=== PATIENT | female | born 1995 | race Caucasian/White ===

== ENCOUNTER 2016-06-20 11:27 | Emergency (ER) | payer OTHER ==
[~2016-06-20] VITALS: Ht 149.9 cm; Wt 67.4 kg
[~2016-06-20 11:27] MED LIST: ALBU1AER9 INH; OXYC-57 PO; QUET1TAB34 PO
[2016-06-20 11:31] VITALS: TEMP 36.8; Ht 149.9 cm; Wt 67.4 kg
[2016-06-20 11:32] VITALS: O2SAT 97
[2016-06-20] MEDS ORDERED: BUPR100T13 PO (12:48)
[2016-06-20] MEDS ORDERED: SODIUM CHLORIDE 0.9% 1000ML 1,000 ML IV STA (13:43)
[2016-06-20 13:59] LABS: HEMATOCRIT 40.3 % (37-47); MEAN CORPUSCULAR HEMOGLOBIN 30.4 pg (25-34); MEAN CORPUSCULAR HGB CONC 35.7 g/dl (32-36); PLATELET COUNT 337 K/uL (130-400); RED BLOOD COUNT 4.74 M/uL (4.2-5.4); WHITE BLOOD COUNT 8.36 K/uL (4.8-10.8)
[2016-06-20 14:07] LABS: BUN/CREATININE RATIO 12.9 (10-20); CALCIUM 8.8 mg/dl (8.5-10.1); CREATININE 0.65 mg/dl (0.60-1.20); POTASSIUM 3.9 mmol/L (3.5-5.1)
[2016-06-20 14:10] LABS: ALB/GLOB RATIO 1.4 (0.9-2)
[2016-06-20 14:15] LABS: PREG INTERNAL NEGATIVE QC NEG CLEAR BACKGROUND; PREG INTERNAL POSITIVE QC POS CONTROL LINE
[2016-06-20 14:57] VITALS: BP 98/59; PULSE 84; O2SAT 98
--- NOTE | 2016-06-20 15:32 | EMERGENCY ROOM VISIT NOTE ---
History Report prepared by Ewa: Fish Poon Under the Supervision of: Dr. Alberto Lemons M.D. First contact with patient: 13:32 Chief Complaint: HEADACHE Stated Complaint: SEIZURE History of Present Illness The patient is a 21 year old female who presents to the Emergency Room via EMS with complaints of resolved seizure-like activity occurring a few minutes prior to arrival. The patient started having her symptoms while she was having an MRI at [facility]. She was having the MRI for worsened migraine headache severity, increased headache frequency, and issues with memory. After she received the MRI contrast injection, she had chest pain, felt her jaw become locked, and lost consciousness. The next thing she remembered was being in the ambulance. The patient denies tongue bite, vomiting, and urinary incontinence. She had a slight headache this morning but was otherwise at baseline. She currently complains of a headache which is similar to her normal migraine headache. She rates the pain intensity at 5/10. She denies any recent fevers, chills, urinary symptoms, or any other complaints. She had a renal profile on June 06 which was normal. She has received an MRI in the past without any issues. She has a history of a seizure occurring after overdosing on medication. The patient's sister has a history of epilepsy secondary to a car accident. The patient has been on Wellbutrin since February 2016. Source of History: patient Onset: a few minutes prior to arrival Position: other (global) Quality: other (seizure-like activity) Timing: resolved Associated Symptoms: + LOC, + chest pain, + headache, No chills, No fevers, No urinary symptoms Review of Systems See HPI for pertinent positives & negatives. A total of 10 systems reviewed and were otherwise negative. Past Medical & Surgical Medical Problems: (1) Active labor (2) Bipolar II disorder (3) Borderline personality disorder (4) cluster B personality disorder (5) Conversion disorder (6) Depression (7) Flank pain (8) Flank pain (9) Flank pain (10) Generalized weakness (11) Migraine (12) (13) (14) contractions (15) PTSD (post-traumatic stress disorder) (16) Stuttering (17) Stuttering (18) Third trimester (19) Urinary tract infection Family History FH: epilepsy Social History Smoking Status: Current Every Day Smoker Alcohol Use: occasionally Drug Use: none Marital Status: single Housing Status: lives with family Occupation Status: unemployed Current/Historical Medications Scheduled Levonorgestrel (Iud) (Mirena), 20 MCG INT UTER UD Quetiapine Fumarate (Seroquel), 100 MG PO HS Scheduled PRN Albuterol Sulfate (Proair Hfa), 2 PUFFS INH Q4H PRN for Asthma Symptoms Epinephrine (Epipen), 0.3 MG IM UD PRN for ALLERGIC REACTION Miscellaneous Medications Bupropion Hcl (Wellbutrin), 100 MG PO Allergies Coded Allergies: BEE STING (Unverified Allergy, Severe, ANAPHYLAXIS, 06/20/16) Sulfamethoxazole w/Trimethoprim (Verified Allergy, Severe, ANAPHYLAXIS, ) Nickel (Verified Allergy, Mild, RASH, 06/20/16) Physical Exam Vital Signs Date Time Temp Pulse Resp B/P Pulse Ox O2 Delivery O2 Flow Rate FiO2 06/20/16 14:57 84 22 98/59 98 06/20/16 14:05 79 16 126/70 97 Room Air 06/20/16 12:14 79 06/20/16 11:32 97 Room Air 06/20/16 11:31 36.8 79 18 113/85 97 Room Air Physical Exam GENERAL: Patient is in no acute distress. HEENT: No acute trauma, normocephalic atraumatic, mucous membranes moist, no nasal congestion, no scleral icterus. NECK: No stridor, no adenopathy, no meningismus, trachea is midline. LUNGS: Clear to auscultation bilaterally, no wheeze, no rhonchi, breath sounds equal. HEART: Without murmurs gallops or rubs, regular rate and rhythm. ABDOMEN: Soft, nontender, bowel sounds positive, no hernias, no peritonitis. EXTREMITIES: No cyanosis or edema, full range of motion of all the joints without pain or difficulty, no signs for acute trauma. NEUROLOGIC: Oriented x 3, no acute motor or sensory deficits, no focal weakness. SKIN: No rash, no jaundice, no diaphoresis. Medical Decision & Procedures Laboratory Results 06/20/16 10:55 06/20/16 10:55 Test 06/20/16 10:55 Red Blood Count 4.74 M/uL (4.2-5.4) Mean Corpuscular Volume 85.0 fL (80-100) Mean Corpuscular Hemoglobin 30.4 pg (25-34) Mean Corpuscular Hemoglobin Concent 35.7 g/dl (32-36) RDW Standard Deviation 40.9 fL (36.4-46.3) RDW Coefficient of Variation 13.1 % (11.5-14.5) Mean Platelet Volume 10.0 fL (7.4-10.4) Anion Gap 10.0 mmol/L (3-11) Est Creatinine Clear Calc Drug Dose 112.4 ml/min Estimated GFR () 145.0 Estimated GFR (Non- 125.1 BUN/Creatinine Ratio 12.9 (10-20) Calcium Level 8.8 mg/dl (8.5-10.1) Total Bilirubin 0.5 mg/dl (0.2-1) Aspartate Amino Transf (AST/SGOT) 13 U/L (15-37) Alanine Aminotransferase (ALT/SGPT) 21 U/L (12-78) Alkaline Phosphatase 132 U/L (45-117) Total Protein 7.0 gm/dl (6.4-8.2) Albumin 4.1 gm/dl (3.4-5.0) Globulin 2.9 gm/dl (2.5-4.0) Albumin/Globulin Ratio 1.4 (0.9-2) Human Chorionic Gonadotropin, Qual NEG (NEG) Laboratory results reviewed by me. Medications Administered Medications (Trade) Dose Ordered Sig/Jose Antonio Route Start Time Stop Time Status Last Admin Dose Admin Sodium Chloride (Nss 1000ml) 1,000 ml @ 999 mls/hr Q1H1M STAT IV 06/20/16 13:43 06/20/16 14:43 DC 06/20/16 13:43 999 MLS/HR ECG Indication: other (seizure-like activity) Rate (beats per minute): 70 Rhythm: normal sinus Findings: other (nonspecific T wave abnormality in anterior lead; no dysrhythmia) Comparison ECG Date: May 25, 2013 Change: Nonspecific T wave abnormalities are similar when compared to May 25, 2013. ED Course 1332: The patient was evaluated in room B09. A complete history and physical exam was performed. 1343: Sodium Chloride 1000 ml @ 999 mls/hr IV 1357: I discussed the patient's case with Dr. Bui, neurologist with [facility]. If the patient's labs are negative, then she recommended discharging the patient and having her follow up. She also recommended stopping the Wellbutrin. 1423: Reevaluated the patient. Discussed results and discharge instructions: She verbalized understanding and agreement. The patient is ready for discharge. Medical Decision Differential diagnosis includes but is not limited to seizure, medication reaction, anxiety/panic, dehydration, electrolyte imbalance, dysrhythmia. There is no leukocytosis or concerning anemia. No significant electrolyte abnormality or kidney failure. There is no hepatitis. testing is negative. On exam, there are no focal neurologic deficits. The patient is not toxic or febrile. EKG shows a sinus rhythm, no dysrhythmia or ischemia. The patient had an event today that may have been a seizure or may have just been a syncopal episode with seizure-like activity. The patient did not have any prolonged postictal phase. She did not bite her tongue or lose urinary continence. I discussed the case with Dr. Dhillon of neurology. The patient will be discharged with outpatient treatment. 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 She was told to stop her Wellbutrin as this may have lowered her seizure threshold. She was encouraged to sleep at least 8 hours per night and to stay well hydrated. The patient was encouraged to return here for worsening symptoms. The patient may have had a reaction to the dye given with the MRI, she may have had a syncopal event, she may have had a seizure. Further workup as an outpatient was recommended. She is stable for discharge. Consults Time Called: 1347 Consulting Physician: Dr. Bui, neurologist with [facility] Returned Call: [phone] I discussed the patient's case with Dr. Bui, neurologist with [facility]. If the patient's labs are negative, then she recommended discharging the patient and having her follow up. She also recommended stopping the Wellbutrin. Impression Primary Impression: Seizure-like activity Scribe Attestation The scribe's documentation has been prepared under my direction and personally reviewed by me in its entirety. I confirm that the note above accurately reflects all work, treatment, procedures, and medical decision making performed by me. Departure Information Dispostion Home / Self-Care Referrals mEili Hernandez M.D. (PCP) Forms HOME CARE DOCUMENTATION FORM, IMPORTANT VISIT INFORMATION Patient Instructions My [facility] Additional Instructions stop the Wellbutrin rest proper sleep--8 hours per night you cannot drive until given clearance by Dr. Cash call neurology for an appt---call tomorrow or today return if worsening lab testing today was all ok
[2016-11-12] MEDS ORDERED: ALBU18002 INH (13:41)
[2016-11-12] MEDS ORDERED: GABA-113 PO (13:42)
== END 2016-06-20 15:00 | disposition home or self-care (01) ==
LOC: EDBD 11:27 → C.EDB 11:28
DX: R56.9 Unspecified convulsions (principal); F31.81 Bipolar II disorder; F32.9 Major depressive disorder, single episode, unspecified; F17.200 Nicotine dependence, unspecified, uncomplicated; Z87.440 Personal history of urinary (tract) infections; Z79.899 Other long term (current) drug therapy; Z88.2 Allergy status to sulfonamides; Z91.030 Bee allergy status; Z91.09 Other allergy status, other than to drugs and biological substances; Z82.0 Family history of epilepsy and other diseases of the nervous system

== ENCOUNTER 2016-09-13 11:28 | Emergency (ER) | payer OTHER ==
[~2016-09-13] VITALS: Ht 160 cm; Wt 67.4 kg
[~2016-09-13 11:28] MED LIST changes: +BUPR100T13 PO; -OXYC-57 PO
[2016-09-13 11:35] VITALS: TEMP 36.8; O2SAT 98; Ht 160 cm; Wt 67.4 kg
[2016-09-13] MEDS ORDERED: SODIUM CHLORIDE 0.9% 1000ML 1,000 ML IV STA (12:13)
[2016-09-13 12:28] LABS: BASO % 0.1 %; BASO ABS # 0.01 K/uL (0-0.2); COMPLETE YES; EOS % 4.6 %; HEMATOCRIT 41.6 % (37-47); IG% 0.2 %; LYMPH % 22.7 %; LYMPH ABS # 1.94 K/uL (1.2-3.4); MEAN CELL VOLUME 85.4 fL (80-100); MEAN CORPUSCULAR HGB CONC 35.1 g/dl (32-36); MEAN PLATELET VOLUME 9.6 fL (7.4-10.4); MONO % 7.3 %; NEUT % 65.1 %; PLATELET COUNT 293 K/uL (130-400); RED BLOOD COUNT 4.87 M/uL (4.2-5.4); WHITE BLOOD COUNT 8.55 K/uL (4.8-10.8)
[2016-09-13 12:45] LABS: POINT OF CARE TROPONIN I < 0.030 ng/ml (0-0.045)
[2016-09-13 12:47] LABS: BUN/CREATININE RATIO 16.1 (10-20); CALCIUM 8.5 mg/dl (8.5-10.1); CREATININE 0.63 mg/dl (0.60-1.20); POTASSIUM 3.1 mmol/L (3.5-5.1)
[2016-09-13 12:55] LABS: URINE APPEARANCE CLEAR (CLEAR); URINE BILIRUBIN NEG (NEG); URINE COLOR YELLOW; URINE EPITHELIAL CELL AUTO >30 /lpf (0-5); URINE NITRITE NEG (NEG); URINE SPECIFIC GRAVITY 1.011 (1.000-1.030); UROBILINOGEN NEG (NEG)
[2016-09-13 12:55] LABS: PREG INTERNAL NEGATIVE QC NEG CLEAR BACKGROUND; PREG INTERNAL POSITIVE QC POS CONTROL LINE; THYROID STIMULATING HORMONE 1.71 uIu/ml (0.300-4.500)
--- NOTE | 2016-09-13 13:02 | DIAGNOSTIC IMAGING REPORT ---
CHEST ONE VIEW PORTABLE CLINICAL HISTORY: CHEST PAIN COMPARISON STUDY: Radiograph and chest CT January 23, 2016. FINDINGS: Lung volumes are normal. There is no pneumothorax or pleural effusion. Cardiac size is normal. Mediastinal contours are normal. There is no evidence of pulmonary edema. IMPRESSION: No acute cardiopulmonary findings. Electronically signed by: Maurilio Borges M.D. 09/13/2016 1:00 PM Dictated Date/Time: 09/13/2016 12:57 PM
[2016-09-13 13:11] LABS: MANUAL MICROSCOPIC REQUIRED? NO; REVIEW REQ? NO
[2016-09-13 16:52] VITALS: BP 107/70; PULSE 82; O2SAT 98
--- NOTE | 2016-09-13 20:33 | EMERGENCY ROOM VISIT NOTE ---
History Report prepared by Ewa: Fish Poon Under the Supervision of: Dr. Lee Bowman M.D. First contact with patient: 12:13 Chief Complaint: CHEST PAIN Stated Complaint: CHEST PAIN Nursing Triage Summary: Pt arrives to ER via ALS with reports of chest pain and chest heaviness that began when patient woke up this AM rated 10/10. Medic started IV and pt reported pain went from 10/10 to 4/10 following a saline flush. EMS also reports pt had "seizure like" activity with tremors/ tense muscles, and head "falling back" right before arrival to hospital. Symptoms stopped upon entering ER. Pt awake but not answering nursing staff upon arrival to room. Sternal rub by Lora RN and patient woke up and spoke with staff. Pt received 324 mg aspirin [employer]. History of Present Illness The patient is a 21 year old female who presents to the Emergency Room via ALS with complaints of persistent chest pain starting about 8 hours ago. The patient woke from sleep with the chest pain. She describes it as a chest tightness and heaviness. She also reports her heart to be racing. She also reports some nausea but denies vomiting. She ate some food this morning without relief. She received 4 baby aspirin by EMS. The patient had been having increased tiredness over the past few days but had been otherwise at baseline. She denies any recent illnesses. As per EMS, the patient had some seizure-like activity occurring with shakiness and her head "fell back". The patient reports she was unable to talk during the episode. The seizure-like activity resolved upon arrival to the Emergency Room. The patient currently feels at baseline and denies any difficulty with speech. She denies any history of similar symptoms. She does not have a history of heart disease. Pt denies LOC, headache, fevers, chills, diaphoresis, visual changes, neck pain , tearing pain radiating to the back, breathing difficulties, leg swelling, coagulation abnormalities, prolonged travel, recent surgery or immobilization, abdominal pain, melena, hematochezia, urinary symptoms, numbness, weakness, lymphadenopathy, rash, or other complaints. Source of History: patient, EMS Onset: about 8 hours ago Position: chest Quality: other (tightness and heaviness) Timing: other (persistent) Modifying Factors (Relieving): eating (without relief) Associated Symptoms: + nausea Review of Systems See HPI for pertinent positives and negatives. A total of ten systems were reviewed and were otherwise negative. Past Medical & Surgical Medical Problems: (1) Active labor (2) Asthma (3) Bipolar II disorder (4) Borderline personality disorder (5) cluster B personality disorder (6) Conversion disorder (7) Depression (8) Flank pain (9) Flank pain (10) Flank pain (11) Generalized weakness (12) H/O endoscopy (13) Migraine (14) (15) (16) contractions (17) PTSD (post-traumatic stress disorder) (18) Stuttering (19) Stuttering (20) Third trimester (21) Urinary tract infection Surgical Problems: (1) S/P cholecystectomy Family History FH: epilepsy Social History Smoking Status: Current Some Day Smoker Alcohol Use: occasionally Drug Use: none Marital Status: single Housing Status: lives with family Occupation Status: unemployed Current/Historical Medications Scheduled Gabapentin (Neurontin), 300 MG PO BID Levonorgestrel (Iud) (Mirena), 20 MCG INT UTER UD Scheduled PRN Albuterol Sulfate (Proair Respiclick), 2 PUFFS INH Q4 PRN for ASTHMA SYMPTOMS Epinephrine (Epipen), 0.3 MG IM UD PRN for ALLERGIC REACTION Allergies Coded Allergies: BEE STING (Unverified Allergy, Severe, ANAPHYLAXIS, 06/20/16) Sulfamethoxazole w/Trimethoprim (Verified Allergy, Severe, ANAPHYLAXIS, ) Nickel (Verified Allergy, Mild, RASH, 06/20/16) Physical Exam Vital Signs Date Time Temp Pulse Resp B/P (MAP) Pulse Ox O2 Delivery O2 Flow Rate FiO2 09/13/16 16:52 82 16 107/70 98 09/13/16 15:00 55 20 192/87 95 Room Air 09/13/16 14:00 78 20 118/66 98 Room Air 09/13/16 13:30 84 20 115/67 99 09/13/16 13:00 72 20 110/63 99 09/13/16 12:45 74 20 103/45 98 09/13/16 12:36 88 20 114/75 99 Room Air 09/13/16 12:07 99 09/13/16 11:35 98 Room Air 09/13/16 11:35 36.8 93 18 134/62 98 Room Air 09/13/16 11:35 98 Room Air Physical Exam GENERAL: Awake, alert, well-appearing, in no distress HENT: Normocephalic, atraumatic. Oropharynx unremarkable. EYES: Normal conjunctiva. Sclera non-icteric. The patient has slight asymmetry of her pupils with the left being 1 mm larger than the right but the patient states is chronic. Pupils are round and reactive. EOMI. NECK: Supple. No nuchal rigidity. FROM. No JVD. RESPIRATORY: Clear to auscultation. CARDIAC: Regular rate, normal rhythm. Extremities warm and well perfused. Pulses equal. ABDOMEN: Soft, non-distended. No tenderness to palpation. No rebound or guarding. No masses. RECTAL: Deferred. MUSCULOSKELETAL: Chest examination reveals no tenderness. The back is symmetrical on inspection without obvious abnormality. No joint edema. LOWER EXTREMITIES: Calves are equal size bilaterally and non-tender. No edema. No discoloration. NEURO: Normal sensorium. No sensory or motor deficits noted. Cranial nerves intact. SKIN: No rash or jaundice noted. Medical Decision & Procedures ER Provider Diagnostic Interpretation: X-ray: Per my interpretation, radiologist review. CHEST ONE VIEW PORTABLE CLINICAL HISTORY: CHEST PAIN COMPARISON STUDY: Radiograph and chest CT January 23, 2016. FINDINGS: Lung volumes are normal. There is no pneumothorax or pleural effusion. Cardiac size is normal. Mediastinal contours are normal. There is no evidence of pulmonary edema. IMPRESSION: No acute cardiopulmonary findings. Electronically signed by: Maurilio Borges M.D. 09/13/2016 1:00 PM Dictated Date/Time: 09/13/2016 12:57 PM Laboratory Results 09/13/16 11:47 Red Blood Count 4.87, Mean Corpuscular Volume 85.4, Mean Corpuscular Hemoglobin 30.0, Mean Corpuscular Hemoglobin Concent 35.1, Mean Platelet Volume 9.6, Neutrophils (%) (Auto) 65.1, Lymphocytes (%) (Auto) 22.7, Monocytes (%) (Auto) 7.3, Eosinophils (%) (Auto) 4.6, Basophils (%) (Auto) 0.1, Neutrophils # (Auto) 5.57, Lymphocytes # (Auto) 1.94, Monocytes # (Auto) 0.62, Eosinophils # (Auto) 0.39, Basophils # (Auto) 0.01 09/13/16 11:47 Test 09/13/16 11:47 09/13/16 12:27 09/13/16 15:09 White Blood Count 8.55 K/uL (4.8-10.8) Red Blood Count 4.87 M/uL (4.2-5.4) Hemoglobin 14.6 g/dL (12.0-16.0) Hematocrit 41.6 % (37-47) Mean Corpuscular Volume 85.4 fL (80-100) Mean Corpuscular Hemoglobin 30.0 pg (25-34) Mean Corpuscular Hemoglobin Concent 35.1 g/dl (32-36) Platelet Count 293 K/uL (130-400) Mean Platelet Volume 9.6 fL (7.4-10.4) Neutrophils (%) (Auto) 65.1 % Lymphocytes (%) (Auto) 22.7 % Monocytes (%) (Auto) 7.3 % Eosinophils (%) (Auto) 4.6 % Basophils (%) (Auto) 0.1 % Neutrophils # (Auto) 5.57 K/uL (1.4-6.5) Lymphocytes # (Auto) 1.94 K/uL (1.2-3.4) Monocytes # (Auto) 0.62 K/uL (0.11-0.59) Eosinophils # (Auto) 0.39 K/uL (0-0.5) Basophils # (Auto) 0.01 K/uL (0-0.2) RDW Standard Deviation 37.9 fL (36.4-46.3) RDW Coefficient of Variation 12.1 % (11.5-14.5) Immature Granulocyte % (Auto) 0.2 % Immature Granulocyte # (Auto) 0.02 K/uL (0.00-0.02) Anion Gap 10.0 mmol/L (3-11) Est Creatinine Clear Calc Drug Dose 128.0 ml/min Estimated GFR () 146.5 Estimated GFR (Non- 126.4 BUN/Creatinine Ratio 16.1 (10-20) Calcium Level 8.5 mg/dl (8.5-10.1) Magnesium Level 2.0 mg/dl (1.8-2.4) Total Bilirubin 0.7 mg/dl (0.2-1) Direct Bilirubin 0.1 mg/dl (0-0.2) Aspartate Amino Transf (AST/SGOT) 17 U/L (15-37) Alanine Aminotransferase (ALT/SGPT) 22 U/L (12-78) Alkaline Phosphatase 103 U/L (45-117) Total Creatine Kinase 67 U/L (26-192) Creatine Kinase MB 0.7 ng/ml (0.5-3.6) Creatine Kinase MB Ratio 1.0 (0-3.0) Total Protein 7.2 gm/dl (6.4-8.2) Albumin 4.2 gm/dl (3.4-5.0) Lipase 151 U/L (73-393) Thyroid Stimulating Hormone (TSH) 1.710 uIu/ml (0.300-4.500) Human Chorionic Gonadotropin, Qual NEG (NEG) Bedside D-Dimer 132 ng/mlFEU (0-450) Urine Color YELLOW Urine Appearance CLEAR (CLEAR) Urine pH 7.0 (4.5-7.5) Urine Specific [place] 1.011 (1.000-1.030) Urine Protein NEG (NEG) Urine Glucose (UA) NEG (NEG) Urine Ketones NEG (NEG) Urine Occult Blood NEG (NEG) Urine Nitrite NEG (NEG) Urine Bilirubin NEG (NEG) Urine Urobilinogen NEG (NEG) Urine Leukocyte Esterase TRACE (NEG) Urine WBC (Auto) 1-5 /hpf (0-5) Urine RBC (Auto) 0-4 /hpf (0-4) Urine Hyaline Casts (Auto) 0 /lpf (0-5) Urine Epithelial Cells (Auto) >30 /lpf (0-5) Urine Bacteria (Auto) NEG (NEG) Bedside Troponin I < 0.030 ng/ml (0-0.045) Laboratory results reviewed by me Medications Administered Medications (Trade) Dose Ordered Sig/Jose Antonio Route Start Time Stop Time Status Last Admin Dose Admin Sodium Chloride 1,000 ml @ 999 mls/hr Q1H1M STAT IV 09/13/16 12:13 09/13/16 13:13 DC 09/13/16 12:13 999 MLS/HR ECG Indication: chest pain Rate (beats per minute): 93 Rhythm: normal sinus Findings: nonspecific-ST abn, no acute ischemic change, no ectopy Comparison ECG Date: June 20, 2016 Change: no significant change ED Course 1213: The patient was evaluated in room C05. A complete history and physical exam was performed. Blood pressure screening: Patient was found to have an elevated blood pressure and was referred to their primary doctor for recheck and further treatment. Medication Reconciliation: I attest that I have personally reviewed the patient' s current medication list Sodium Chloride 1000 ml @ 999 mls/hr IV 1457: I updated the patient. 1635: I reevaluated the patient. Discussed results and discharge instructions: She verbalized understanding and agreement. The patient is ready for discharge. Medical Decision Triage Nursing notes reviewed. The patient's presentation and history were concerning for chest pain and a syncopal/seizure like episode. Etiologies such as cardiac ischemia, aortic dissection, pulmonary embolism, pneumonia, pneumothorax, musculoskeletal, infections, gastrointestinal, syncope , seizure, neurologic, as well as others were entertained. The patient was evaluated. Clinically she was doing well. Her ECG was unremarkable. Chest x-ray was unremarkable. Her CBC and urinalysis and chemistry panel unremarkable except for a slightly decreased potassium. LFTs and lipase negative. Cardiac markers were done and were negative. Repeat troponin was negative as well. is negative. D-dimer is negative. The patient was observed in the emergency department. She had no events on monitor. There is not a clear seizure like activity with a post ictal period described. The patient woke up and was conversing with nursing after a sternal rub. It sounds like she may have had more of a vasovagal-like reaction. There is no evidence of significant dysrhythmia or hypotension. The patient states that she has had similar episodes in the past. She does have a neurologist. She has no focal neurologic findings, headache, or neurologic issues at this time CT imaging of the head or further seizure workup was felt to be inappropriate. I discussed conservative management with the patient. She was in agreement. She will follow back up with her primary physician and neurologist. The patient had chest discomfort for the entire day and her ECG, cardiac markers, and d-dimer were unremarkable. I do not suspect an emergent cardiopulmonary source for her symptoms. May be musculoskeletal or GI related. She has a benign abdominal examination and normal LFTs and chemistries. Return instructions were outlined and the patient was discharged in stable condition. Impression Primary Impression: Substernal chest pain Additional Impression: Palpitations Scribe Attestation The scribe's documentation has been prepared under my direction and personally reviewed by me in its entirety. I confirm that the note above accurately reflects all work, treatment, procedures, and medical decision making performed by me. Departure Information Dispostion Home / Self-Care Referrals Emili Hernandez M.D. (PCP) Forms HOME CARE DOCUMENTATION FORM, IMPORTANT VISIT INFORMATION Patient Instructions My [facility] Additional Instructions CHEST PAIN INSTRUCTIONS: Ibuprofen(Motrin, Advil) may be used for fever or pain. Use 600mg every six hours as needed. Take with food. Avoid using more than 2400mg in a 24 hour period. Do not use 2400mg per day for more than three consecutive days without physician direction. Prolonged inappropriate use can lead to stomach upset or ulcers. (AND/OR) Acetaminophen(Tylenol) may be used for fever or pain. Use 1000mg every six hours as needed. Avoid using more than 4000mg in a 24 hour period. Rest and drink plenty of fluids as tolerated. Continue current medications. Avoid strenuous activities and anything that worsens your pain. Resume normal activities once your symptoms resolve. Return to the ER immediately for worsening or persistent chest pain, abdominal pain, vomiting, fevers, chest pains, difficulty breathing, worsening of your condition, or as needed. Follow up with your primary physician next week for a recheck of your current condition. Problem Qualifiers
[2016-11-12] MEDS ORDERED: ALBU18002 INH (13:41)
[2016-11-12] MEDS ORDERED: GABA-113 PO (13:42)
== END 2016-09-13 16:54 | disposition home or self-care (01) ==
LOC: EDBD 11:28 → C.EDC 11:29
DX: R07.2 Precordial pain (principal); R00.2 Palpitations; J45.909 Unspecified asthma, uncomplicated; F31.81 Bipolar II disorder; G43.909 Migraine, unspecified, not intractable, without status migrainosus; F43.10 Post-traumatic stress disorder, unspecified; Z87.440 Personal history of urinary (tract) infections; F17.210 Nicotine dependence, cigarettes, uncomplicated; Z79.899 Other long term (current) drug therapy

== ENCOUNTER 2016-11-12 14:57 | Emergency (ER) | payer OTHER ==
[~2016-11-12] VITALS: Ht 149.9 cm; Wt 62.7 kg
[~2016-11-12 14:57] MED LIST changes: +ALBU18002 INH; -ALBU1AER9 INH; -BUPR100T13 PO; +GABA-113 PO; -QUET1TAB34 PO
[2016-11-12 15:08] VITALS: TEMP 37; Ht 149.9 cm; Wt 62.7 kg
[2016-11-12] MEDS ORDERED: SUMA50TA15 PO (15:24)
[2016-11-12] MEDS ORDERED: EPP3/2 IM (15:39)
[2016-11-12 15:42] LABS: BASO % 0.4 %; BASO ABS # 0.04 K/uL (0-0.2); COMPLETE YES; EOS % 5.7 %; HEMATOCRIT 43.6 % (37-47); IG% 0.2 %; LYMPH ABS # 2.53 K/uL (1.2-3.4); MEAN CELL VOLUME 86.2 fL (80-100); MEAN CORPUSCULAR HEMOGLOBIN 30.6 pg (25-34); MEAN CORPUSCULAR HGB CONC 35.6 g/dl (32-36); MEAN PLATELET VOLUME 9.5 fL (7.4-10.4); MONO % 5.5 %; NEUT % 63.2 %; PLATELET COUNT 323 K/uL (130-400); RED BLOOD COUNT 5.06 M/uL (4.2-5.4); WHITE BLOOD COUNT 10.11 K/uL (4.8-10.8)
[2016-11-12 16:02] LABS: BUN/CREATININE RATIO 12.4 (10-20); CALCIUM 9.6 mg/dl (8.5-10.1); CREATININE 0.78 mg/dl (0.60-1.20); MAGNESIUM 2.3 mg/dl (1.8-2.4); POTASSIUM 3.7 mmol/L (3.5-5.1)
[2016-11-12 16:13] LABS: THYROID STIMULATING HORMONE 1.94 uIu/ml (0.300-4.500)
[2016-11-12 16:16] LABS: URINE APPEARANCE CLEAR (CLEAR); URINE COLOR DK YELLOW; URINE EPITHELIAL CELL AUTO >30 /lpf (0-5); URINE NITRITE NEG (NEG); URINE PH 5.5 (4.5-7.5); URINE SPECIFIC GRAVITY 1.028 (1.000-1.030); UROBILINOGEN NEG (NEG); ZZUR CULT IF INDIC CLEAN CATCH NO
--- NOTE | 2016-11-12 16:17 | EMERGENCY ROOM VISIT NOTE ---
History Report prepared by Ewa: Renee See Under the Supervision of: Dr. Mechelle Galo M.D. First contact with patient: 15:00 Chief Complaint: SEIZURE Stated Complaint: SEIZURE History of Present Illness The patient is a 21 year old female who presents to the Emergency Room with complaints of an episode of a seizure occurring [employer]. The patient was at [facility] today for an EEG to evaluate for epilepsy. They were trying to provoke a seizure during the EEG and the patient had an episode of a seizure that lasted about two minutes. After this episode the patient was sent to the ED by ambulance for further evaluation. The patient states that she has a history of seizures but she cannot remember having any of these episodes. She has been told that she had one seizure in MRI. She also had two seizures while in an ambulance en route to the ED on September 13 when she was coming in for a cardiac assessment. She is currently complaining of a frontal headache that she rates as a 6/10 in severity. The patient denies any chance of . She denies any incontinence of urine or stool today with her seizure. She has not had any recent changes to her medications. Source of History: patient Onset: [employer] Position: other (global) Symptom Intensity: 6/10 Quality: other (seizure) Timing: other (episode) Modifying Factors (Worsening): other (EEG study) Modifying Factors (Relieving): other (time) Associated Symptoms: + headache Note: Pt denies incontinence. Review of Systems See HPI for pertinent positives & negatives. A total of 10 systems reviewed and were otherwise negative. Past Medical & Surgical Medical Problems: (1) Active labor (2) Asthma (3) Bipolar II disorder (4) Borderline personality disorder (5) cluster B personality disorder (6) Conversion disorder (7) Depression (8) Flank pain (9) Flank pain (10) Flank pain (11) Generalized weakness (12) H/O endoscopy (13) Migraine (14) (15) (16) contractions (17) PTSD (post-traumatic stress disorder) (18) Stuttering (19) Stuttering (20) Third trimester (21) Urinary tract infection Surgical Problems: (1) S/P cholecystectomy Family History FH: epilepsy Social History Smoking Status: Never Smoker Alcohol Use: occasionally Drug Use: none Marital Status: single Housing Status: lives with family Occupation Status: unemployed Current/Historical Medications Scheduled Gabapentin (Neurontin), 300 MG PO HS Levonorgestrel (Iud) (Mirena), 20 MCG INT UTER UD Scheduled PRN Albuterol Sulfate (Proair Respiclick), 2 PUFFS INH Q4H PRN for Cough/SOB/ Wheezing Epinephrine (Epipen), 0.3 MG IM UD PRN for ALLERGIC REACTION Sumatriptan Succinate (Imitrex), 50 MG PO UD PRN for Migraine Allergies Coded Allergies: BEE STING (Unverified Allergy, Severe, ANAPHYLAXIS, 06/20/16) Sulfa Antibiotics (Verified Allergy, Severe, ANAPHYLAXIS, 11/12/16) Sulfamethoxazole w/Trimethoprim (Verified Allergy, Severe, ANAPHYLAXIS, ) Nickel (Verified Allergy, Mild, RASH, 06/20/16) Physical Exam Vital Signs Date Time Temp Pulse Resp B/P (MAP) Pulse Ox O2 Delivery O2 Flow Rate FiO2 11/12/16 19:46 67 16 95/61 11/12/16 18:15 57 20 102/61 96 Room Air 11/12/16 16:41 72 20 107/60 99 Room Air 11/12/16 15:18 80 11/12/16 15:08 37.0 83 20 90/47 95 Room Air Physical Exam Vital signs reviewed. General: Well-appearing 21 year old female, in no significant distress. HEENT: No scleral icterus, PERRLA, neck supple. Atraumatic. EEG leads in place. Cardiovascular: Regular rate and rhythm, no extra sounds. Pulmonary: Clear to auscultation bilaterally, normal work of breathing. Abdomen: Soft, nontender, nondistended, positive bowel sounds. Musculoskeletal: Atraumatic, no peripheral edema. Neurologic: Patient awake alert and oriented x 3, full strength in all 4 extremities. Cranial nerves 2 through 12 grossly intact. Skin: Warm, dry, no rash Medical Decision & Procedures Laboratory Results 11/12/16 15:26 Red Blood Count 5.06, Mean Corpuscular Volume 86.2, Mean Corpuscular Hemoglobin 30.6, Mean Corpuscular Hemoglobin Concent 35.6, Mean Platelet Volume 9.5, Neutrophils (%) (Auto) 63.2, Lymphocytes (%) (Auto) 25.0, Monocytes (%) (Auto) 5.5, Eosinophils (%) (Auto) 5.7, Basophils (%) (Auto) 0.4, Neutrophils # (Auto) 6.38, Lymphocytes # (Auto) 2.53, Monocytes # (Auto) 0.56, Eosinophils # (Auto) 0.58, Basophils # (Auto) 0.04 11/12/16 15:26 Test 11/12/16 15:26 11/12/16 15:45 White Blood Count 10.11 K/uL (4.8-10.8) Red Blood Count 5.06 M/uL (4.2-5.4) Hemoglobin 15.5 g/dL (12.0-16.0) Hematocrit 43.6 % (37-47) Mean Corpuscular Volume 86.2 fL (80-100) Mean Corpuscular Hemoglobin 30.6 pg (25-34) Mean Corpuscular Hemoglobin Concent 35.6 g/dl (32-36) Platelet Count 323 K/uL (130-400) Mean Platelet Volume 9.5 fL (7.4-10.4) Neutrophils (%) (Auto) 63.2 % Lymphocytes (%) (Auto) 25.0 % Monocytes (%) (Auto) 5.5 % Eosinophils (%) (Auto) 5.7 % Basophils (%) (Auto) 0.4 % Neutrophils # (Auto) 6.38 K/uL (1.4-6.5) Lymphocytes # (Auto) 2.53 K/uL (1.2-3.4) Monocytes # (Auto) 0.56 K/uL (0.11-0.59) Eosinophils # (Auto) 0.58 K/uL (0-0.5) Basophils # (Auto) 0.04 K/uL (0-0.2) RDW Standard Deviation 37.8 fL (36.4-46.3) RDW Coefficient of Variation 12.0 % (11.5-14.5) Immature Granulocyte % (Auto) 0.2 % Immature Granulocyte # (Auto) 0.02 K/uL (0.00-0.02) Anion Gap 9.0 mmol/L (3-11) Est Creatinine Clear Calc Drug Dose 90.3 ml/min Estimated GFR () 124.2 Estimated GFR (Non- 107.2 BUN/Creatinine Ratio 12.4 (10-20) Calcium Level 9.6 mg/dl (8.5-10.1) Magnesium Level 2.3 mg/dl (1.8-2.4) Total Bilirubin 0.9 mg/dl (0.2-1) Direct Bilirubin 0.2 mg/dl (0-0.2) Aspartate Amino Transf (AST/SGOT) 16 U/L (15-37) Alanine Aminotransferase (ALT/SGPT) 21 U/L (12-78) Alkaline Phosphatase 113 U/L (45-117) Total Protein 7.8 gm/dl (6.4-8.2) Albumin 4.3 gm/dl (3.4-5.0) Thyroid Stimulating Hormone (TSH) 1.940 uIu/ml (0.300-4.500) Urine Color DK YELLOW Urine Appearance CLEAR (CLEAR) Urine pH 5.5 (4.5-7.5) Urine Specific [place] 1.028 (1.000-1.030) Urine Protein NEG (NEG) Urine Glucose (UA) NEG (NEG) Urine Ketones TRACE (NEG) Urine Occult Blood NEG (NEG) Urine Nitrite NEG (NEG) Urine Bilirubin 1+ (NEG) Urine Urobilinogen NEG (NEG) Urine Leukocyte Esterase TRACE (NEG) Urine WBC (Auto) 5-10 /hpf (0-5) Urine RBC (Auto) 0-4 /hpf (0-4) Urine Hyaline Casts (Auto) 10-30 /lpf (0-5) Urine Epithelial Cells (Auto) >30 /lpf (0-5) Urine Bacteria (Auto) NEG (NEG) Urine Test NEG (NEG) Laboratory results per my review. ECG Indication: other (seizure) Rate (beats per minute): 63 Rhythm: sinus with SA Findings: no acute ischemic change, no ectopy ED Course 1500: Past medical records reviewed. The patient was evaluated in room B12B. A complete history and physical examination was performed. 1654: I reassessed the patient at this time. She is feeling better and resting comfortably. I discussed the results and treatment plan with the patient. I answered all pertaining questions that she had. She expressed understanding and verbalized agreement. The patient will be discharged home. Medical Decision Differential diagnosis: Etiologies such as infection, hypoglycemia, electrolyte abnormalities, cardiac sources, intracerebral event, trauma, toxicologic, neurologic, as well as others were entertained. This patient was evaluated and appeared to be in no significant distress. Patient is awake, alert and answering questions appropriately. IV access was obtained and laboratory work was drawn. The patient was found to have relatively normal blood work. Records were reviewed from [facility] and reveal a nonepileptic episode during her EEG. The patient was informed of the findings. She was encouraged to drink plenty of water and continue her medications as prescribed. She'll follow-up with her physician for reevaluation this week and return to the ER for worsening of symptoms or any medical concerns. Medication Reconcilliation Current Medication List: was personally reviewed by me Blood Pressure Screening Patient's blood pressure: Low blood pressure Impression Primary Impression: Nonepileptic episode Scribe Attestation The scribe's documentation has been prepared under my direction and personally reviewed by me in its entirety. I confirm that the note above accurately reflects all work, treatment, procedures, and medical decision making performed by me. Departure Information Dispostion Home / Self-Care Referrals No Doctor, Assigned (PCP) Manuela Kevin M.D. Forms HOME CARE DOCUMENTATION FORM, IMPORTANT VISIT INFORMATION Patient Instructions My [facility], Seizures - [facility] Additional Instructions Diagnosis: Seizure Follow up with your PCP this week for reevaluation Follow up with neurology as scheduled for information regarding your EEG Return to the ED for worsening of symptoms or any medical concerns.
[2016-11-12 16:18] LABS: MANUAL MICROSCOPIC REQUIRED? NO; REVIEW REQ? YES; URINE BILIRUBIN 1+ (NEG)
[2016-11-12 18:15] VITALS: O2SAT 96
[2016-11-12 19:46] VITALS: BP 95/61; PULSE 67
[2016-11-12] MEDS ORDERED: LEVOIUD INT UTER (22:43)
== END 2016-11-12 19:56 | disposition home or self-care (01) ==
LOC: EDBD 14:57 → C.EDB 14:57
DX: F44.5 Conversion disorder with seizures or convulsions (principal); J45.909 Unspecified asthma, uncomplicated; F31.81 Bipolar II disorder; F60.3 Borderline personality disorder; F32.9 Major depressive disorder, single episode, unspecified; F43.10 Post-traumatic stress disorder, unspecified; F80.81 Childhood onset fluency disorder; Z82.0 Family history of epilepsy and other diseases of the nervous system

== ENCOUNTER 2018-12-10 16:21 | Inpatient (IN) ==
--- OUTSIDE RECORDS SUMMARY | 2018-12-10 16:25 | External Medical Summary | Continuity of Care Document ---
:1995 Author Name Marbella Ovalle Address Unavailable Unavailable , Care Team Providers Name Role Phone Stevexxxxx Unavailable [email or web address] [email or web address], [email or web address] Unavailable Unavailable Problems Active medical history not documented Allergies and Adverse Reactions Allergy history not documented Medications Medications not documented Procedures Procedures not documented Immunizations Immunizations not documented Plan of Treatment Planned Observations Planned Goals not documented Results No Known Results Results not documented
[2018-12-10] MEDS ORDERED: ALBUT/IPRATROP 3MG/0.5MG NEB 3 ML VIAL INH STA (16:40)
[2018-12-10 16:45] LABS: Basophils # (auto) 0.03 K/uL (0-0.2); Basophils % (auto) 0.5 %; Eosinophils # (auto) 0.41 K/uL (0-0.5); Eosinophils % (auto) 6.7 %; Hematocrit (blood only) 40.9 % (37-47); Hemoglobin 14.5 g/dL (12.0-16.0); Immature Granulocytes # (auto) 0.01 K/uL (0.00-0.02); Immature Granulocytes % (auto) 0.2 %; Lymphocytes # (auto) 1.46 K/uL (1.2-3.4); Lymphocytes % (auto) 23.9 %; Mean Corpuscular Hgb Conc 35.5 g/dL (32-36); Mean Corpuscular Volume 86.8 fL (80-100); Mean Platelet Volume 9.3 fL (7.4-10.4); Monocytes # (auto) 0.33 K/uL (0.11-0.59); Monocytes % (auto) 5.4 %; Neutrophils # (auto) 3.86 K/uL (1.4-6.5); Neutrophils % (auto) 63.3 %; Platelet Count 238 K/uL (130-400); RDW Coefficient of Variation 12.8 % (11.5-14.5); RDW Standard Deviation 40.9 fL (36.4-46.3); Red Blood Count 4.71 M/uL (4.2-5.4)
[2018-12-10] MEDS ORDERED: methylPREDNISolone 125 MG/2 ML VIAL IV STA (16:48)
[2018-12-10] MEDS ORDERED: ALBUT/IPRATROP 3MG/0.5MG NEB 3 ML VIAL NEB STA (16:59)
[2018-12-10 17:03] LABS: Alanine Aminotransferase 20 U/L (12-78); Albumin Level 4.4 gm/dl (3.4-5.0); Aspartate Aminotransferase 11 U/L (15-37); BUN Creatinine Ratio 9.1 (10-20); Blood Urea Nitrogen 8 mg/dl (7-18); Calcium 8.8 mg/dl (8.5-10.1); Carbon Dioxide 21 mmol/L (21-32); Chloride 111 mmol/L (98-107); Est GFR (African American) 105.8; Est GFR (Non-African American) 91.3; Glucose 105 mg/dl (70-99); Potassium 2.8 mmol/L (3.5-5.1); Sodium 142 mmol/L (136-145)
[2018-12-10 17:08] LABS: Albumin Globulin Ratio 1.5 (0.9-2); Alkaline Phosphatase 86 U/L (45-117); Bilirubin,Total 0.9 mg/dl (0.2-1); Globulin 2.9 gm/dl (2.5-4.0); Total Protein 7.3 gm/dl (6.4-8.2); Troponin I < 0.015 ng/ml (0-0.045)
--- NOTE | 2018-12-10 17:17 | XRay Report ---
XR chest 1V portable CLINICAL HISTORY: Atypical chest pain COMPARISON STUDY: 09/13/2016 FINDINGS: The cardiac and mediastinal contours are normal. There is no evidence of focal pulmonary co nsolidation. There is no evidence of failure. No pleural effusions are visualized.[ IMPRESSION: No active disease in the chest. Electronically signed by: Ramez Navas M.D. 12/10/2018 5:16 PM
[2018-12-10] MEDS ORDERED: POTASSIUM CHLORIDE 20 MEQ TABCR PO STA ×2 (17:51→20:11)
[2018-12-10 18:11] LABS: Influenza A virus by PCR Neg for Influ A (Neg); Influenza B virus by PCR Neg for Influ B (Neg)
[2018-12-10] MEDS ORDERED: SODIUM CHLORIDE 0.9% 1000ML 2,000 ML IV ONE (18:20)
[2018-12-10 18:24] LABS: D Dimer 210 ug/L FEU (0-500)
[2018-12-10] MEDS ORDERED: ALBUTEROL 0.083% NEBU SOLN 3 ML VIAL NEB STA (20:15)
[2018-12-10] MEDS ORDERED: MAGNESIUM SULFATE / D5W 1 GM/100 ML BAG IV ONE (20:42)
--- NOTE | 2018-12-10 20:42 | Emergency Department Note ---
Entered by Felix Latif acting as a scribe for Helder Almodovar DO History of Present Illness General Chief complaint: Shortness of Breath/Dyspnea Source: patient History of Present Illness Onset (ago): day(s) 3 Location: chest Pain Consistency: + other (worsening) Quality: + other (tightness) Relieved By: + medication (mildly by Duoneb and albuterol) Associated symptoms: + denies other symptoms (swelling of calves, recent trips, history of immobilization or recent surgery, prior history of DVT, hemoptysis, history of malignancy, history of smoking, or control/estrogen use), + cough, + shortness of breath and + other (sneezing, runny nose, labored breath ing); no chest pain The patient is a 23 y/o female who presents to the ED w/ a past medical history of asthma, BI-polar disorder, depression, anxiety, borderline personality disorder, chronic migraines with a CC of worsening chest tightness beginning three days ago. The patient states he symptoms started four days ago with sneezing and a runny nose. She reports she then developed chest tightness and coughing the following day. The patient notes her chest tightness has worsened over the past few days, and she developed shortness of breath and labored breathing. She states she has tried using her albuterol inhaler, and it has not relieved her symptoms completely. The patient reports she is currently a smoking and states "I think smoking helps my asthma". She notes she was giving a Duoneb in route and it mildly helped her symptoms. The patient states this is different than her asthma. Patient denies chest pain, swelling of calves, recent trips, history of immobilization or recent surgery, prior history of DVT, hemoptysis, history of malignancy, history of smoking, or control/estrogen use. Home Medications Home Medications Medication Instructions Recorded Confirmed Type albuterol sulfate 2 puff INHALATION Q4 PRN 12/10/18 12/10/18 History epinephrine 0.3 mg SUBCUT UD PRN 12/10/18 12/10/18 History fluticasone propion-salmeterol 1 puff INHALATION BID 12/10/18 12/10/18 History fluticasone propionate 2 spray INTRANASAL DAILY 12/10/18 12/10/18 History loratadine [Allergy Relief 10 mg PO QAM 12/10/18 12/10/18 History (loratadine)] Allergies Allergy/AdvReac Type Severity Reaction Status Date / Time Bactrim Allergy Severe ANAPHYLAXIS Verified 06/20/16 13:08 bee venom protein (honey bee) Allergy Severe ANAPHYLAXIS Unverified 12/10/18 17:08 Sulfa (Sulfonamide Allergy Severe ANAPHYLAXIS Verified 12/10/18 17:08 Antibiotics) sulfamethoxazole Allergy Severe ANAPHYLAXIS Verified 12/10/18 17:08 trimethoprim Allergy Severe ANAPHYLAXIS Verified 12/10/18 17:08 nickel Allergy Mild RASH Verified 12/10/18 17:08 Past Med/Surg History Medical History Borderline personality disorder (Chronic) PTSD (post-traumatic stress disorder) (Chronic) Depression (Chronic) Migraine (Chronic) Urinary tract infection (Resolved) Generalized weakness (Resolved) Conversion disorder (Resolved) Flank pain (Resolved) (Resolved 03/24/13) H/O endoscopy (Resolved) Asthma (Chronic) Surgical History S/P cholecystectomy (Resolved) Family History Other Epilepsy Social History Feels Safe at Home: Yes Smoking Status: Current every day smoker Review of Systems See HPI for pertinent positives & negatives. and A total of 10 systems reviewed and were otherwise negative Physical Exam Vital Signs Vital Signs - 24 hr 12/10/18 16:33 12/10/18 16:36 12/10/18 17:00 Temperature Temperature Source Sepsis Recent Fever Within 48 Hours Sepsis New/Unexplained Change in Mental Status Sepsis Action Taken by Nursing Pulse Rate 100 H 99 H 105 H Pulse Rate [Right Radial] Pulse Rate from SpO2 Sensor 92 H 101 H 105 H Pulse Rhythm Pulse Strength Respiratory Rate 20 20 29 H Respiratory Effort / Characteristics Respiratory Depth Respiratory Pattern Blood Pressure 117/82 104/73 Blood Pressure Mean 93 83 Pulse Oximetry 96 94 94 Oxygen Delivery Method 12/10/18 17:08 12/10/18 17:13 12/10/18 17:16 Temperature 36.8 C Temperature Source Oral Sepsis Recent Fever Within 48 Hours No Sepsis New/Unexplained Change in Mental Status No Sepsis Action Taken by Nursing No Action Required Pulse Rate 84 95 H Pulse Rate [Right Radial] 106 H Pulse Rate from SpO2 Sensor 105 H Pulse Rhythm Regular Pulse Strength Normal Respiratory Rate 20 18 35 H Respiratory Effort / Characteristics Non-Labored Spontaneous Non-Labored Spontaneous Respiratory Depth Normal Respiratory Pattern Regular Blood Pressure 117/82 104/69 Blood Pressure Mean 93 80 Pulse Oximetry 97 91 97 Oxygen Delivery Method Room Air Room Air 12/10/18 17:17 12/10/18 17:21 12/10/18 17:30 Temperature Temperature Source Sepsis Recent Fever Within 48 Hours Sepsis New/Unexplained Change in Mental Status Sepsis Action Taken by Nursing Pulse Rate 93 H 84 103 H Pulse Rate [Right Radial] Pulse Rate from SpO2 Sensor 99 H 106 H Pulse Rhythm Regular Pulse Strength Respiratory Rate 15 20 17 Respiratory Effort / Characteristics Respiratory Depth Respiratory Pattern Blood Pressure 105/60 Blood Pressure Mean 75 Pulse Oximetry 100 97 97 Oxygen Delivery Method Room Air 12/10/18 17:31 12/10/18 18:00 12/10/18 18:01 Temperature Temperature Source Sepsis Recent Fever Within 48 Hours Sepsis New/Unexplained Change in Mental Status Sepsis Action Taken by Nursing Pulse Rate 102 H 112 H 114 H Pulse Rate [Right Radial] Pulse Rate from SpO2 Sensor 102 H 111 H 115 H Pulse Rhythm Pulse Strength Respiratory Rate 14 25 H 24 Respiratory Effort / Characteristics Respiratory Depth Respiratory Pattern Blood Pressure 105/70 Blood Pressure Mean 81 Pulse Oximetry 99 96 94 Oxygen Delivery Method 12/10/18 18:30 12/10/18 18:31 12/10/18 19:00 Temperature Temperature Source Sepsis Recent Fever Within 48 Hours Sepsis New/Unexplained Change in Mental Status Sepsis Action Taken by Nursing Pulse Rate 103 H 114 H 108 H Pulse Rate [Right Radial] Pulse Rate from SpO2 Sensor 106 H 115 H 112 H Pulse Rhythm Pulse Strength Respiratory Rate 18 25 H 20 Respiratory Effort / Characteristics Respiratory Depth Respiratory Pattern Blood Pressure 119/53 L 94/63 L Blood Pressure Mean 75 73 Pulse Oximetry 91 96 94 Oxygen Delivery Method 12/10/18 19:01 12/10/18 19:14 12/10/18 19:30 Temperature Temperature Source Sepsis Recent Fever Within 48 Hours Sepsis New/Unexplained Change in Mental Status Sepsis Action Taken by Nursing Pulse Rate 112 H 110 H 107 H Pulse Rate [Right Radial] Pulse Rate from SpO2 Sensor 112 H 111 H 109 H Pulse Rhythm Pulse Strength Respiratory Rate 21 20 22 Respiratory Effort / Characteristics Respiratory Depth Respiratory Pattern Blood Pressure 98/56 L 101/54 L Blood Pressure Mean 70 69 Pulse Oximetry 95 96 100 Oxygen Delivery Method 12/10/18 19:31 12/10/18 20:00 12/10/18 20:01 Temperature Temperature Source Sepsis Recent Fever Within 48 Hours Sepsis New/Unexplained Change in Mental Status Sepsis Action Taken by Nursing Pulse Rate 122 H 112 H 114 H Pulse Rate [Right Radial] Pulse Rate from SpO2 Sensor 109 H Pulse Rhythm Pulse Strength Respiratory Rate 21 22 22 Respiratory Effort / Characteristics Respiratory Depth Respiratory Pattern Blood Pressure 103/53 L Blood Pressure Mean 69 Pulse Oximetry 94 Oxygen Delivery Method GENERAL: Sitting up in bed, talking in full sentences, diffuse wheezing EYE EXAM: normal conjunctiva, PERRL and EOM's intact OROPHARYNX: no exudate, no erythema, lips, buccal mucosa, and tongue normal and mucous membranes are moist CHEST: Reproducible anterior chest wall pain seems to complete NECK: supple, no nuchal rigidity, no adenopathy, non-tender LUNGS: Wheezing bilaterally. Normal chest wall mechanics HEART: no murmurs, S1 normal and S2 normal ABDOMEN: abdomen soft, non-tender, normo-active bowel sounds, no masses, no rebound or guarding. BACK: Back is symmetrical on inspection and there is no deformity, no midline tenderness, no CVA tenderness. SKIN: no rashes and no bruising UPPER EXTREMITIES: upper extremities are grossly normal. LOWER EXTREMITIES: No pitting edema. Calves equal bilaterally. NEURO EXAM: Normal sensorium, cranial nerves II-XII grossly intact, normal speech, no gross weakness of arms, no gross weakness of legs. Course ED COURSE: Vital signs were reviewed and showed HTN and tachycardia. The patients medical record was reviewed The above diagnostic studies were performed and reviewed. ED treatments and interventions as stated above. 163: The patient was evaluated in room C04 by the resident under my supervision. A complete history and physical examination was performed. 1653: The patient was evaluated in room C04 by me. A complete history and physical examination was performed. 1825: Upon reevaluation, the patient is feeling better. I updated her of her current test results. 2002: The patient is resting. I discussed current test results with her. 2011: Upon reevaluation, the patient is resting.I discussed my findings with the patient and she understands and agrees with the treatment plan. 2023: I discussed the patient's case with Dr. Meyer, [facility]. He will evaluate the patient for further management and care Based on the patients age, coexisting illnesses, exam and lab findings the decision to treat as an inpatient was made. The patient remained stable while under my care. The patient will be evaluated for further management. Administered Medications Discontinued Medications Albuterol (Duoneb) 3 ml INH NOW STA Stop: 12/10/18 16:41 Last Admin: 12/10/18 17:05 Dose: Not Given Documented by: [id number] Albuterol (Duoneb) 6 ml NEB NOW STA Stop: 12/10/18 17:00 Last Admin: 12/10/18 17:12 Dose: 6 ml Documented by: [id number] Albuterol (Ventolin 0.083% 2.5mg/3ml) 5 mg NEB NOW STA Stop: 12/10/18 20:16 Last Admin: 12/10/18 20:34 Dose: 5 mg Documented by: [id number] Sodium Chloride (Nss 1000ml) 2,000 mls @ 999 mls/hr IV .Q2H1M ONE Stop: 12/10/18 20:20 Last Infusion: 12/10/18 20:29 Dose: 0 mls/hr Documented by: [id number] Admin: 12/10/18 18:28 Dose: 999 mls/hr Documented by: [id number] Methylprednisolone (Solumedrol) 60 mg IV NOW STA Stop: 12/10/18 16:49 Last Admin: 12/10/18 17:22 Dose: 60 mg Documented by: [id number] Potassium Chloride (Klor-Con M20) 40 meq PO NOW STA Stop: 12/10/18 17:52 Last Admin: 12/10/18 17:55 Dose: 40 meq Documented by: [id number] Potassium Chloride (Klor-Con M20) 40 meq PO NOW STA Stop: 12/10/18 20:12 Last Admin: 12/10/18 20:35 Dose: 40 meq Documented by: [id number] Medical Decision Making Differential Diagnosis Differential diagnoses includes but is not limited to pneumonia, bronchitis, COPD/Asthma exacerbation, pneumothorax, pulmonary embolism, congestive heart failure, acute coronary syndrome Medical Records Attestation: I reviewed the patient's medical records. Home Medications Current Medication List: was personally reviewed by me Laboratory Data Attestation: I reviewed the patient's lab results. Result diagrams: 12/10/18 16:33 12/10/18 16:33 Lab Results 12/10/18 12/10/18 12/10/18 Range/Units 16:33 16:33 16:33 WBC 6.10 (4.8-10.8) K/uL RBC 4.71 (4.2-5.4) M/uL Hgb 14.5 (12.0-16.0) g/dL Hct 40.9 (37-47) % MCV 86.8 (80-100) fL MCH 30.8 (25-34) pg MCHC 35.5 (32-36) g/dL RDW Std Deviation 40.9 (36.4-46.3) fL RDW Coeff of Sigrid 12.8 (11.5-14.5) % Plt Count 238 (130-400) K/uL MPV 9.3 (7.4-10.4) fL Immature Gran % (Auto) 0.2 % Neut % (Auto) 63.3 % Lymph % (Auto) 23.9 % Garfield % (Auto) 5.4 % Eos % (Auto) 6.7 % Baso % (Auto) 0.5 % Immature Gran # (Auto) 0.01 (0.00-0.02) K/uL Neut # (Auto) 3.86 (1.4-6.5) K/uL Lymph # (Auto) 1.46 (1.2-3.4) K/uL Garfield # (Auto) 0.33 (0.11-0.59) K/uL Eos # (Auto) 0.41 (0-0.5) K/uL Baso # (Auto) 0.03 (0-0.2) K/uL D-Dimer 210 (0-500) ug/L FEU Sodium 142 (136-145) mmol/L Potassium 2.8 L (3.5-5.1) mmol/L Chloride 111 H (98-107) mmol/L Carbon Dioxide 21 (21-32) mmol/L Anion Gap 10.0 (3-11) BUN 8 (7-18) mg/dl Creatinine 0.88 (0.6-1.2) mg/dl Est Cr Clr Drug Dosing Not Reportable Est GFR ( Amer) 105.8 Est GFR (Non-Af Amer) 91.3 BUN/Creatinine Ratio 9.1 L (10-20) Glucose 105 H (70-99) mg/dl Calcium 8.8 (8.5-10.1) mg/dl Total Bilirubin 0.9 (0.2-1) mg/dl AST 11 L (15-37) U/L ALT 20 (12-78) U/L Alkaline Phosphatase 86 (45-117) U/L Troponin I < 0.015 (0-0.045) ng/ml Total Protein 7.3 (6.4-8.2) gm/dl Albumin 4.4 (3.4-5.0) gm/dl Globulin 2.9 (2.5-4.0) gm/dl Albumin/Globulin Ratio 1.5 (0.9-2) Lipase 98 (73-393) U/L Influenza Type A (PCR) (Neg) Influenza Type B (PCR) (Neg) 12/10/18 12/10/18 Range/Units 17:01 18:15 WBC (4.8-10.8) K/uL RBC (4.2-5.4) M/uL Hgb (12.0-16.0) g/dL Hct (37-47) % MCV (80-100) fL MCH (25-34) pg MCHC (32-36) g/dL RDW Std Deviation (36.4-46.3) fL RDW Coeff of Sigrid (11.5-14.5) % Plt Count (130-400) K/uL MPV (7.4-10.4) fL Immature Gran % (Auto) % Neut % (Auto) % Lymph % (Auto) % Garfield % (Auto) % Eos % (Auto) % Baso % (Auto) % Immature Gran # (Auto) (0.00-0.02) K/uL Neut # (Auto) (1.4-6.5) K/uL Lymph # (Auto) (1.2-3.4) K/uL Garfield # (Auto) (0.11-0.59) K/uL Eos # (Auto) (0-0.5) K/uL Baso # (Auto) (0-0.2) K/uL D-Dimer (0-500) ug/L FEU Sodium (136-145) mmol/L Potassium (3.5-5.1) mmol/L Chloride (98-107) mmol/L Carbon Dioxide (21-32) mmol/L Anion Gap (3-11) BUN (7-18) mg/dl Creatinine (0.6-1.2) mg/dl Est Cr Clr Drug Dosing Est GFR ( Amer) Est GFR (Non-Af Amer) BUN/Creatinine Ratio (10-20) Glucose (70-99) mg/dl Calcium (8.5-10.1) mg/dl Total Bilirubin (0.2-1) mg/dl AST (15-37) U/L ALT (12-78) U/L Alkaline Phosphatase (45-117) U/L Troponin I < 0.015 (0-0.045) ng/ml Total Protein (6.4-8.2) gm/dl Albumin (3.4-5.0) gm/dl Globulin (2.5-4.0) gm/dl Albumin/Globulin Ratio (0.9-2) Lipase (73-393) U/L Influenza Type A (PCR) Neg for Influ A (Neg) Influenza Type B (PCR) Neg for Influ B (Neg) Imaging Data Radiologist's Impression: Radiology results as stated below per my review and the radiologist's interpretation: XR chest 1V portable CLINICAL HISTORY: Atypical chest pain COMPARISON STUDY: 09/13/2016 FINDINGS: The cardiac and mediastinal contours are normal. There is no evidence of focal pulmonary consolidation. There is no evidence of failure. No pleural effusions are visualized.[ IMPRESSION: No active disease in the chest. Electronically signed by: Ramez Navas M.D. 12/10/2018 5:16 PM ECG Data Attestation: I personally reviewed and interpreted this ECG as follows: Indication: chest pain Rate (beats per minute): 92 Rhythm: sinus rhythm Findings: + other, + ST depression (Inferior, Septal, Lateral, and anterior leads) and + T-wave inversion (lead III) Comparison ECG Date: from (11/12/16) Additional Comments: Depression in the Inferior, Septal, Lateral, and anterior leads is new REPEAT EKG IN THE SAME ED VISIT: Sinus tachycardia with a rate of 116. ST depre ssion in the Inferior, Lateral, and anterior leads. TWI in lead III. - Depression has slightly improved. Blood Pressure Blood Pressure Findings: Elevated blood pressure Blood Pressure Disposition: further management by hospitalist VARSHA Narrative Patient is a 23-year-old female who presents the ER for shortness of breath. She is a past medical history of asthma and still smokes. Symptoms started Friday with a runny nose and have gradually worsened. She notes she is signi ficantly short of breath and has diffuse chest pain. Vitals show that she is fairly persistently tachycardic in the low 100s. IV was established blood work was obtained and shows no significant leukocytosis or anemia. D-dimer was negative. BMP with hypokalemia at 2.8. No significant transaminitis. Troponin is negative. Lipase normal. Influenza is negative. Chest x-ray without any focal infiltrate. Patient was given IV fluids, IV steroids and 4 separate albuterol treatments. Patient was given total of 80 mEq of potassium. EKG shows diffuse ST wave changes initially with minimal improvement in the second. Chest pain is completely reproducible. Troponins negative. Pt was given IV magnesium as well. Do favor that this is likely muscle skeletal chest pain and EKG changes are either secondary to the hypokalemia versus demand/stress. Patient was updated bedside. Discussed with the hospitalist and patient was admitted for further work-up. Impression & Plan Asthma exacerbation, Acute electrocardiogram changes, Chest pain, precordial, Acute hypokalemia, Tachycardia Critical Care Time Critical Care Time: Yes Total Critical Care Time: 30 I have personally spent 30 minutes of critical care time in the direct management of this patient. This includes bedside care, interpretation of diagnostic studies, and testing, discussion with consultants, patient, and family members, and other required patient management activities. This 30 minutes is in excess of all separately billable procedures. Discharge Plan Visit Data Chief Complaint: Shortness of Breath/Dyspnea ED Provider: Helder Almodovar Discharge Problem: Asthma exacerbation, Acute electrocardiogram changes, Chest pain, precordial, Acute hypokalemia, Tachycardia Patient Disposition: Being Evaluated by Hospitalist Forms Stand Alone Forms: [facility] Prescriptions Prescriptions: No Action epinephrine 0.3 mg/0.3 mL auto-injector 0.3 mg subcut UD PRN (Reason: Allergic Reaction) RF: 0 albuterol sulfate 90 mcg/actuation HFA aerosol inhaler 2 puff inhalation Q4 PRN (Reason: Shortness Of Breath Or Wheezing) RF: 0 fluticasone propionate 50 mcg/actuation spray,suspension 2 spray intranasal DAILY RF: 0 loratadine [Allergy Relief (loratadine)] 10 mg tablet 10 mg PO QAM RF: 0 fluticasone propion-salmeterol 232-14 mcg/actuation aerosol powdr breath activated 1 puff inhalation BID RF: 0 Referrals Referrals: PCP,NO [Primary Care Provider] - Discharge Problem: Asthma exacerbation Qualifiers: Asthma severity: unspecified severity Asthma persistence: unspecified Qualified Code(s): J45.901 - Unspecified asthma with (acute) exacerbation The scribe's documentation has been prepared under my direction and personally reviewed by me in its entirety. I confirm that the note above accurately reflects all work, treatment, procedures, and medical decision making performed by me.
[2018-12-10] MEDS ORDERED: ALBUTEROL HFA 8 GM INHALER INH PRN (22:03)
[2018-12-10] MEDS ORDERED: EPINEPHRINE ADULT AUTO-INJECT 0.3 MG SYR IM PRN (22:03)
[2018-12-10] MEDS ORDERED: NITROGLYCERIN SL 0.4 MG/TAB TAB SL PRN (22:03)
[2018-12-10] MEDS ORDERED: ACETAMINOPHEN 325 MG TAB PO PRN (22:03)
[2018-12-10] MEDS ORDERED: ONDANSETRON INJ 2 MG/ML 2 ML VIAL IV PRN (22:03)
[2018-12-10] MEDS: CIPRO 0.2%/HYDROCORTISONE 1% OTIC SUSP 10 ML BTL OTL SCH (22:41)
[2018-12-10] MEDS: methylPREDNISolone 40 MG in SYRINGE 0 ML IV SCH (22:41)
[2018-12-10] MEDS: DOXYCYCLINE HYCLATE 100 MG CAP PO SCH (22:42)
--- NOTE | 2018-12-10 22:47 | History and Physical Report ---
DATE OF ADMISSION: 12/10/2018 CHIEF COMPLAINT: Shortness of breath. HISTORY OF PRESENT ILLNESS: A 23-year-old female with past medical history of intermittent asthma, allergic rhinitis, tobacco abuse, history of migraines, history of major depression, bipolar disorder, Asperger's disorder, borderline personality disorder, who lives alone with her cats and she has neighbors and family to help her, presents with shortness of breath started last Friday, got progressively worse, coughing up some yellowish brown sputum, felt some feverish a couple of days ago and because of worsening shortness of breath, she came to the ER. She has bilateral wheezing on presentation and received nebs and steroids. In the hospital, also was found to have potassium of 2.8. The patient denies any nausea, vomiting or diarrhea. No fever or chills. Complains of chest pressure like feeling. Says feels like someone sitting on the chest. No sweating, no headache, no dizziness, no blurred vision. Complains of some earache in the left ear. Has some sore throat from coughing. No difficulty swallowing. Appetite is okay. No nausea, no vomiting, no abdominal pain, no diarrhea, no constipation, no blood in the stools or black stools. No hematuria or dysuria. No swelling of the legs, no rash. Currently resting comfortably and hemodynamically stable. ALLERGIES: BEE STINGS, SULFA ANTIBIOTICS, LACTOSE INTOLERANCE, NICKEL. PAST MEDICAL HISTORY: As mentioned above. PAST SURGICAL HISTORY: EGDs with endoscopic ultrasound, EGD with ERCP with biopsy, laparoscopic cholecystectomy, removal of left wrist ganglion. MEDICATIONS: The patient is on albuterol 2 puffs q. 4 hours p.r.n., fluticasone, salmeterol 1 puff in halation b.i.d., Flonase 2 sprays twice daily, loratadine 10 mg p.o. daily. FAMILY HISTORY: Significant for, mother has allergic rhinitis, mental disorder. Brother has heart disorder, mental disorder. SOCIAL HISTORY: Single, smokes quarter pack a day. Alcohol rarely. No drug use. REVIEW OF SYMPTOMS: As per HPI. Rest of review of systems is negative. PHYSICAL EXAMINATION: GENERAL: The patient is of moderate build, not in acute distress. VITAL SIGNS: Temperature 36.8, pulse 101, respiratory rate 20s, blood pressure 92/75, oxygen 100% room air. HEENT: No pallor, no icterus. Extraocular muscles intact. Ears: on spot of redness in the left eardrum. NECK: No JVD, no neck masses, no carotid bruits. CARDIOVASCULAR: S1, S2 heard, tachycardia. No murmurs. RESPIRATORY SYSTEM: Normal AP diameter. No accessory muscle use. Bilateral rhonchi heard. ABDOMEN: Soft, bowel sounds present, nontender. No distention. CENTRAL NERVOUS SYSTEM: Cranial nerves II-XII grossly intact. Nonfocal. EXTREMITIES: No edema, no erythema. LABORATORY DATA: WBC 6.1, hemoglobin 14.5, hematocrit 40.9, platelets 238. D-dimer 210. Sodium 142, potassium 2.8, chloride 111, CO2 of 21, BUN 8, creatinine 0.8, serum glucose 105, calcium 8.8, total bilirubin 0.9, AST 11, ALT 20, alkaline phosphatase 86, troponin I less than 0.015. Influenza A and B negative. CHEST RAY: No acute disease in the chest. EKG shows sinus rhythm with short AL at a rate of 92. ST-T wave abnormality in inferior leads and anterolateral ischemia. T-wave inversions in inferior and anterolateral leads. ASSESSMENT AND PLAN: This is a 23-year-old female who presents with shortness of breath with asthma exacerbation and also some EKG changes. 1. Asthma exacerbation. The patient has a history of intermittent asthma, also history of allergic rhinitis, sob and cough with sputum started last Friday and progressively worsened .No leukocytosis and on chest x-ray, no obvious infiltrates. We will treat with IV steroids, IV Solu-Medrol 40 mg t.i.d., nebs around the clock and p.r.n., doxycycline p.o. b.i.d. and monitor in tele floor. 2. Chest pressure and some EKG changes with T-wave inversions in anterolateral and inferior leads. D-dimer is negative. Troponin is negative, probably from asthma exacerbation, also from hypokalemia. We will follow serial enzymes, echo and repeat EKG. Epic record ekg reading had non specific t wave abnormality. If any concerns, we will consult cardiology. Monitor in tele floor. 4. Hypokalemia. We will replace. Follow repeat labs. 5. Deep venous thrombosis prophylaxis, sequential compression devices for now. 6. Disposition: Admit to tele floor. Expect discharge home and follow up with the family doctor. Level 1 full code. MTDJose
[2018-12-10] MEDS: FLUTICASONE/SALMETEROL 250/50 (ADVAIR) 14 PUFF/1 INHALER INH SCH (23:39)
[2018-12-11 00:43] LABS: Potassium 3.7 mmol/L (3.5-5.1)
[2018-12-11 00:50] LABS: Magnesium 2.3 mg/dl (1.8-2.4); Troponin I < 0.015 ng/ml (0-0.045)
[2018-12-11] MEDS ORDERED: XOPENEX/ATROVENT 1.25mg/0.5MG NEB COMBO NEB SCH (01:00)
[2018-12-11] MEDS: IPRATROPIUM BROMIDE NEB SOLN 0.02% 2.5 ML VIAL INH SCH ×4 (01:05→13:30)
[2018-12-11] MEDS: LEVALBUTEROL 1.25MG/0.5ML NEB INH SCH ×4 (01:06→13:30)
[2018-12-11 05:36] LABS: Hematocrit (blood only) 37.7 % (37-47); Hemoglobin 12.9 g/dL (12.0-16.0); Immature Granulocytes # (auto) 0.01 K/uL (0.00-0.02); Immature Granulocytes % (auto) 0.1 %; Lymphocytes # (auto) 0.47 K/uL (1.2-3.4); Lymphocytes % (auto) 5.4 %; Mean Corpuscular Hgb Conc 34.2 g/dL (32-36); Mean Corpuscular Volume 88.9 fL (80-100); Monocytes # (auto) 0.06 K/uL (0.11-0.59); Monocytes % (auto) 0.7 %; Neutrophils % (auto) 93.8 %; Platelet Count 245 K/uL (130-400); RDW Coefficient of Variation 13.2 % (11.5-14.5); RDW Standard Deviation 42.8 fL (36.4-46.3); Red Blood Count 4.24 M/uL (4.2-5.4); White Blood Count 8.74 K/uL (4.8-10.8)
[2018-12-11 05:59] LABS: BUN Creatinine Ratio 9.8 (10-20); Calcium 8.6 mg/dl (8.5-10.1); Creatinine Clr Calc Pharmacy 100.8 ml/min; Est GFR (African American) 134.9; Est GFR (Non-African American) 116.4; Magnesium 2.1 mg/dl (1.8-2.4); Potassium 4.3 mmol/L (3.5-5.1)
[2018-12-11] MEDS: FLUTICASONE PROPIONATE NA SPR 16 GM BTL SCH (09:04)
[2018-12-11] MEDS: methylPREDNISolone 40 MG in SYRINGE 0 ML IV SCH (09:04)
[2018-12-11] MEDS: FLUTICASONE/SALMETEROL 250/50 (ADVAIR) 14 PUFF/1 INHALER INH SCH ×2 (09:04→20:33)
[2018-12-11] MEDS: DOXYCYCLINE HYCLATE 100 MG CAP PO SCH ×2 (09:04→20:34)
[2018-12-11] MEDS: LORATADINE 10 MG TAB PO SCH (09:04)
[2018-12-11] MEDS: CIPRO 0.2%/HYDROCORTISONE 1% OTIC SUSP 10 ML BTL OTL SCH ×2 (09:05→20:35)
[2018-12-11] MEDS ORDERED: SUMAtriptan succinate 25 MG TAB PO STA (10:09)
[2018-12-11] MEDS ORDERED: SODIUM CHLORIDE 0.9% 1000ML 500 ML IV ONE (13:17)
--- NOTE | 2018-12-11 16:23 | Hospitalist Progress Note ---
Date of Service December 11, 2018 Assessment & Plan (1) Asthma exacerbation: HISTORY OF PRESENT ILLNESS: A 23-year-old female with past medical history of intermittent asthma, allergic rhinitis, tobacco abuse, history of migraines, history of major depression, bipolar disorder, Asperger's disorder, borderline personality disorder, who lives alone with her cats and she has neighbors and family to help her, presents with shortness of breath started last Friday, got progressively worse, coughing up some yellowish brown sputum, felt some feverish a couple of days ago and because of worsening shortness of breath, she came to the ER. She has bilateral wheezing on presentation and received nebs and steroids. In the hospital, also was found to have potassium of 2.8 Asthma exacerbation (mild intermittent asthma with exacerbation) possible bronchitis -was treated with nebulizer treatments and IV solumedrol -currently no wheezing. IV solumedrol and scheduled nebulizer treatments stopped since morning time of 12/11/18 -continue nebulizers on prn basis -continue home inhalers -continue doxycycline as initiated on admission for bronchitis Sinus Tachycardia -Sinus tachycardia is improving -however at this time , patient is not really near her baseline heart rates as per history of vital signs from outpatient clinic visits -recently heart rates in high 90s to low 100s -this may have been contributed by previous nebulizer treatments and IV steroids -does not appear to need telemetry at this time but would further monitor on a medical ru[facility] unit and awaiting further decrease in heart rate before considering hospital discharge Chest pressure with acute electrocardiogram changes on admission -some EKG changes with T-wave inversions anterolateral and inferior leads on admission -D-dimer is negative -Troponin is serially negative -echocardiogram with normal ejection fraction and no evidence of pericardial effusion -likely chest discomforts were from coughing Hypokalemia -admission serum potassium 2.8 -with subsequent repletions serum potassium normalized to 4.3 on 12/11/18 Deep venous thrombosis prophylaxis, sequential compression devices, encourage ambulation Full Code Subjective Patient breathing on room air. no shortness of breath. no chest pain. Heart rates have been at times mildly tachycardic. Patient denies palpitations. no abdomen pain. no vomiting. no dizziness. no headache. she was able to ambulate on her own Physical Exam Constitutional: comfortable Eyes: PERRL, conjunctivae normal, anicteric sclerae EOM intact bilaterally ENMT: external ear and nose normal, oropharynx normal Respiratory: normal respiratory effort, lungs clear to auscultation Cardiovascular: Rate/Rhythm: regular rhythm heart rate has been in high 90s to low 100s Gastrointestinal (Abdomen): normal bowel sounds, soft, nontender, no hepatosplenomegaly Musculoskeletal: Head/Neck/Chest: normocephalic and head atraumatic Neurologic: PERRL, EOMI, accommodation nl, no face palsy, no dysarthria CN's II-XI intact bilaterally Psychiatric: A+Ox3, euthymic affect Results & Data Vital Signs (Past 12 Hours) Vital Signs Temp Pulse Resp BP Pulse Ox 12/11/18 15:35 37.3 C 98 H 18 109/62 96 12/11/18 11:49 37 C 111 H 18 113/74 96 12/11/18 08:09 36.8 C 94 H 18 124/68 98 12/11/18 07:06 71 15 97 (1) Asthma exacerbation Asthma persistence: unspecified Asthma severity: unspecified severity Quali fied Code(s): J45.901 - Unspecified asthma with (acute) exacerbation
[2018-12-12 05:56] LABS: Basophils # (auto) 0.01 K/uL (0-0.2); Basophils % (auto) 0.1 %; Eosinophils # (auto) 0.02 K/uL (0-0.5); Eosinophils % (auto) 0.1 %; Hematocrit (blood only) 38.7 % (37-47); Hemoglobin 13.1 g/dL (12.0-16.0); Immature Granulocytes # (auto) 0.05 K/uL (0.00-0.02); Immature Granulocytes % (auto) 0.3 %; Lymphocytes # (auto) 2.08 K/uL (1.2-3.4); Mean Corpuscular Hgb Conc 33.9 g/dL (32-36); Mean Corpuscular Volume 89.8 fL (80-100); Mean Platelet Volume 9.6 fL (7.4-10.4); Monocytes # (auto) 0.62 K/uL (0.11-0.59); Monocytes % (auto) 3.6 %; Neutrophils # (auto) 14.59 K/uL (1.4-6.5); Neutrophils % (auto) 83.9 %; Platelet Count 249 K/uL (130-400); RDW Coefficient of Variation 13.2 % (11.5-14.5); RDW Standard Deviation 43.6 fL (36.4-46.3); Red Blood Count 4.31 M/uL (4.2-5.4); White Blood Count 17.37 K/uL (4.8-10.8)
[2018-12-12 06:31] LABS: Albumin Globulin Ratio 1.4 (0.9-2); Albumin Level 3.9 gm/dl (3.4-5.0); BUN Creatinine Ratio 21.3 (10-20); Bilirubin,Total 0.4 mg/dl (0.2-1); Calcium 8.7 mg/dl (8.5-10.1); Creatinine Clr Calc Pharmacy 97.9 ml/min; Est GFR (African American) 134.9; Est GFR (Non-African American) 116.4; Globulin 2.7 gm/dl (2.5-4.0); Potassium 4.1 mmol/L (3.5-5.1); Total Protein 6.6 gm/dl (6.4-8.2)
[2018-12-12] MEDS: FLUTICASONE/SALMETEROL 250/50 (ADVAIR) 14 PUFF/1 INHALER INH SCH (08:12)
[2018-12-12] MEDS: FLUTICASONE PROPIONATE NA SPR 16 GM BTL SCH (08:13)
[2018-12-12] MEDS: DOXYCYCLINE HYCLATE 100 MG CAP PO SCH (08:13)
[2018-12-12] MEDS: CIPRO 0.2%/HYDROCORTISONE 1% OTIC SUSP 10 ML BTL OTL SCH (08:13)
[2018-12-12] MEDS: LORATADINE 10 MG TAB PO SCH (08:14)
[2018-12-12] MEDS ORDERED: LEVALBUTEROL HCL 1.25 MG/3 ML NEB NEB STA (08:19)
--- NOTE | 2018-12-12 09:15 | XRay Report ---
XR chest 2V routine CLINICAL HISTORY: Cough. COMPARISON STUDY: 12/10/2018 FINDINGS: The heart is normal in size. There is no failure. There is no focal pulmonary consolidation . There are no pleural effusions. Slight prominence of basilar markings is felt related to technical factors due to overlying breast tissue.[ IMPRESSION: No active disease in the chest. Electronically signed by: Ramez Navas M.D. 12/12/2018 9:14 AM
[2018-12-12] MEDS ORDERED: SUMAtriptan succinate 25 MG TAB PO PRN (10:09)
--- NOTE | 2018-12-12 14:06 | Hospitalist Progress Note ---
Date of Service December 12, 2018 Assessment & Plan (1) Asthma exacerbation: HISTORY OF PRESENT ILLNESS: A 23-year-old female with past medical history of intermittent asthma, allergic rhinitis, tobacco abuse, history of migraines, history of major depression, bipolar disorder, Asperger's disorder, borderline personality disorder, who lives alone with her cats and she has neighbors and family to help her, presents with shortness of breath started last Friday, got progressively worse, coughing up some yellowish brown sputum, felt some feverish a couple of days ago and because of worsening shortness of breath, she came to the ER. She has bilateral wheezing on presentation and received nebs and steroids. In the hospital, also was found to have potassium of 2.8 Asthma exacerbation (mild intermittent asthma with exacerbation) bronchitis -was treated with nebulizer treatments and IV solumedrol -V solumedrol and scheduled nebulizer treatments stopped since morning time of 12/11/18 -continue doxycycline as initiated on admission for bronchitis -12/12/18 Patient's heart rate improved. Still have some cough. Continues to be breathing on room air. Had 1 nebulizer treatment today for expiratory wheeze. Now breathing improved. Patient feels ready to be discharged from hospital. Dis charge Instructions discussed includes discharge on Doxycycline 100 mg BID for bronchitis, discussed asthma medications at home, follow up with primary care doctor follow up 12/18/2018 11:00 AM Provider Ariane Kelly MD Department Internal Medicine [place] for repeat vital signs and repeat complete blood count test because of leukocytosis (increased white blood cell counts) from previous steroids during this hospital stay as part of the asthma treatment which also contributed to fast heart rate on previous hospital days Sinus Tachycardia (resolved) -Sinus tachycardia is resolved by 12/12/18 when she was around 1 day removed from scheduled nebulizer treatments and IV solumedrol -heart rate at baseline Leukocytosis -WBC 17,000 on 12/12/18 -no fever -elevated WBC from previous IV steroids Chest pain/ pressure with acute electrocardiogram changes on admission -some EKG changes with T-wave inversions anterolateral and inferior leads on admission -D-dimer is negative -Troponin is serially negative -echocardiogram with normal ejection fraction and no evidence of pericardial effusion -likely chest discomforts are from coughing Hypokalemia (resolved) -admission serum potassium 2.8 -with subsequent repletions serum potassium normalized to 4.3 on 12/11/18 -serum potassium 4.1 on 12/12/18 Deep venous thrombosis prophylaxis, sequential compression devices, encourage ambulation Full Code Discharge Diagnosis: Asthma exacerbation (mild intermittent asthma with exacerbation); bronchitis; Sinus Tachycardia (resolved); Leukocytosis; Chest pain/pressure from coughing; Hypokalemia (resolved) Subjective Patient's heart rate improved. Still have some cough. Continues to be breathing on room air. Had 1 nebulizer treatment today for expiratory wheeze. Now breathing improved. Patient feels ready to be discharged from hospital. Discharge Instructions discussed includes discharge on Doxycycline 100 mg BID for bronchitis, discussed asthma medications at home, follow up with primary care doctor follow up 12/18/2018 11:00 AM Provider Ariane Kelly MD Department Internal Medicine [place] for repeat vital signs and repeat complete blood count test because of leukocytosis (increased white blood cell counts) from previous steroids during this hospital stay as part of the asthma treatment which also contributed to fast heart rate on previous hospital days. No vomiting. no abdominal pain. no headache. no dizziness. Physical Exam Constitutional: comfortable Eyes: PERRL, conjunctivae normal, anicteric sclerae EOM intact bilaterally ENMT: external ear and nose normal, oropharynx normal Respiratory: normal respiratory effort, lungs clear to auscultation Cardiovascular: Rate/Rhythm: regular rhythm Gastrointestinal (Abdomen): normal bowel sounds, soft, nontender, no hepatosplenomegaly Musculoskeletal: Head/Neck/Chest: normocephalic and head atraumatic Neurologic: PERRL, EOMI, accommodation nl, no face palsy, no dysarthria CN's II-XI intact bilaterally Psychiatric: A+Ox3, euthymic affect Results & Data Vital Signs (Past 12 Hours) Vital Signs Temp Pulse Resp BP Pulse Ox 12/12/18 07:16 36.6 C 77 16 98/64 L 96 (1) Asthma exacerbation Asthma persistence: unspecified Asthma severity: unspecified severity Qualified Code(s): J45.901 - Unspecified asthma with (acute) exacerbation
--- NOTE | 2018-12-12 14:18 | Discharge Summary ---
Date of Service December 12, 2018 Admission HPI Per Admitting Provider CHIEF COMPLAINT: Shortness of breath. HISTORY OF PRESENT ILLNESS: A 23-year-old female with past medical history of intermittent asthma, allergic rhinitis, tobacco abuse, history of migraines, history of major depression, bipolar disorder, Asperger's disorder, borderline personality disorder, who lives alone with her cats and she has neighbors and family to help her, presents with shortness of breath started last Friday, got progressively worse, coughing up some yellowish brown sputum, felt some feverish a couple of days ago and because of worsening shortness of breath, she came to the ER. She has bilateral wheezing on presentation and received nebs and steroids. In the hospital, also was found to have potassium of 2.8. The patient denies any nausea, vomiting or diarrhea. No fever or chills. Complains of chest pressure like feeling. Says feels like someone sitting on the chest. No sweating, no headache, no dizziness, no blurred vision. Complains of some earache in the left ear. Has some sore throat from coughing. No difficulty swallowing. Appetite is okay. No nausea, no vomiting, no abdominal pain, no diarrhea, no constipation, no blood in the stools or black stools. No hematuria or dysuria. No swelling of the legs, no rash. Currently resting comfortably and hemodynamically stable. ALLERGIES: BEE STINGS, SULFA ANTIBIOTICS, LACTOSE INTOLERANCE, NICKEL. PAST MEDICAL HISTORY: As mentioned above. PAST SURGICAL HISTORY: EGDs with endoscopic ultrasound, EGD with ERCP with biopsy, laparoscopic cholecystectomy, removal of left wrist ganglion. MEDICATIONS: The patient is on albuterol 2 puffs q. 4 hours p.r.n., fluticasone, salmeterol 1 puff in halation b.i.d., Flonase 2 sprays twice daily, loratadine 10 mg p.o. daily. FAMILY HISTORY: Significant for, mother has allergic rhinitis, mental disorder. Brother has heart disorder, mental disorder. SOCIAL HISTORY: Single, smokes quarter pack a day. Alcohol rarely. No drug use. REVIEW OF SYMPTOMS: As per HPI. Rest of review of systems is negative. Admission Exam Per Admitting Provider PHYSICAL EXAMINATION: GENERAL: The patient is of moderate build, not in acute distress. VITAL SIGNS: Temperature 36.8, pulse 101, respiratory rate 20s, blood pressure 92/75, oxygen 100% room air. HEENT: No pallor, no icterus. Extraocular muscles intact. Ears: on spot of redness in the left eardrum. NECK: No JVD, no neck masses, no carotid bruits. CARDIOVASCULAR: S1, S2 heard, tachycardia. No murmurs. RESPIRATORY SYSTEM: Normal AP diameter. No accessory muscle use. Bilateral rhonchi heard. ABDOMEN: Soft, bowel sounds present, nontender. No distention. CENTRAL NERVOUS SYSTEM: Cranial nerves II-XII grossly intact. Nonfocal. EXTREMITIES: No edema, no erythema. Principal Diagnosis Asthma exacerbation (mild intermittent asthma with exacerbation); bronchitis; Sinus Tachycardia (resolved); Leukocytosis; Chest pain/pressure from coughing; Hypokalemia (resolved) Discharge Exam Constitutional comfortable Eyes PERRL, conjunctivae normal, anicteric sclerae EOM intact bilaterally ENMT external ear and nose normal, oropharynx normal Respiratory normal respiratory effort, lungs clear to auscultation Cardiovascular Rate/Rhythm: regular rhythm Gastrointestinal (Abdomen) normal bowel sounds, soft, nontender, no hepatosplenomegaly Musculoskeletal Head/Neck/Chest: normocephalic and head atraumatic Neurologic PERRL, EOMI, accommodation nl, no face palsy, no dysarthria CN's II-XI intact bilaterally Psychiatric A+Ox3, euthymic affect Discharge Data Allergies Allergy/AdvReac Type Severity Reaction Status Date / Time Bactrim Allergy Severe ANAPHYLAXIS Verified 06/20/16 13:08 bee venom protein (honey bee) Allergy Severe ANAPHYLAXIS Unverified 12/10/18 17:08 Sulfa (Sulfonamide Allergy Severe ANAPHYLAXIS Verified 12/10/18 17:08 Antibiotics) sulfamethoxazole Allergy Severe ANAPHYLAXIS Verified 12/10/18 17:08 trimethoprim Allergy Severe ANAPHYLAXIS Verified 12/10/18 17:08 nickel Allergy Mild RASH Verified 12/10/18 17:08 Consultations 12/10/18 20:24 ED Decision to Admit Stat 12/12/18 08:20 Consult Case Management - Discharge Planning Routine Hospital Course (1) Asthma exacerbation: HISTORY OF PRESENT ILLNESS: A 23-year-old female with past medical history of intermittent asthma, allergic rhinitis, tobacco abuse, history of evon kristine, history of major depression, bipolar disorder, Asperger's disorder, borderline personality disorder, who lives alone with her cats and she has neighbors and family to help her, presents with shortness of breath started last Friday, got progressively worse, coughing up some yellowish brown sputum, felt some feverish a couple of days ago and because of worsening shortness of breath, she came to the ER. She has bilateral wheezing on presentation and received nebs and steroids. In the hospital, also was found to have potassium of 2.8 Asthma exacerbation (mild intermittent asthma with exacerbation) bronchitis -was treated with nebulizer treatments and IV solumedrol -V solumedrol and scheduled nebulizer treatments stopped since morning time of 12/11/18 -continue doxycycline as initiated on admission for bronchitis -12/12/18 Patient's heart rate improved. Still have some cough. Continues to be breathing on room air. Had 1 nebulizer treatment today for expiratory wheeze. Now breathing improved. Patient feels ready to be discharged from hospital. Discharge Instructions discussed includes discharge on Doxycycline 100 mg BID for bronchitis, discussed asthma medications at home, follow up with primary care doctor follow up 12/18/2018 11:00 AM Provider Ariane Kelly MD Department Internal Medicine [facility] for repeat vital signs and repeat complete blood count test because of leukocytosis (increased white blood cell counts) from previous steroids during this hospital stay as part of the asthma treatment which also contributed to fast heart rate on previous hospital days Sinus Tachycardia (resolved) -Sinus tachycardia is resolved by 12/12/18 when she was around 1 day removed from scheduled nebulizer treatments and IV solumedrol -heart rate at baseline Leukocytosis -WBC 17,000 on 12/12/18 -no fever -elevated WBC from previous IV steroids Chest pain/ pressure with acute electrocardiogram changes on admission -some EKG changes with T-wave inversions anterolateral and inferior leads on admission -D-dimer is negative -Troponin is serially negative -echocardiogram with normal ejection fraction and no evidence of pericardial effusion -likely chest discomforts are from coughing Hypokalemia (resolved) -admission serum potassium 2.8 -with subsequent repletions serum potassium normalized to 4.3 on 12/11/18 -serum potassium 4.1 on 12/12/18 Deep venous thrombosis prophylaxis, sequential compression devices, encourage ambulation Full Code Discharge Diagnosis: Asthma exacerbation (mild intermittent asthma with exacerbation); bronchitis; Sinus Tachycardia (resolved); Leukocytosis; Chest pain/pressure from coughing; Hypokalemia (resolved) Total Time Total Time Spent Total Time Spent (In Minutes): 40 minutes Total Time Includes: Examination of the Patient, Discharge Planning, Medication Reconciliation and Communication With Other Providers Discharge Plan Discharge Items Patient Disposition: Home - Self-Care Reason For Visit: SOB, CHEST PRESSURE Discharge Diagnosis: Asthma exacerbation (mild intermittent asthma with exacerbation); bronchitis; Sinus Tachycardia (resolved); Leukocytosis; Chest pain/pressure from coughing; Hypokalemia (resolved) Condition: Good Discharge Goals: Improve disease control Activity: Resume your previous activity Non-emergency contact: Primary Care Provider Call non-emergency contact if: you have any medication questions Follow-up/Referrals: PCP,MARVIN [Primary Care Provider] - Diet: Regular Addtl Provider Instructions: Discharge Instructions discussed includes discharge on Doxycycline 100 mg BID for bronchitis, discussed asthma medications at home, follow up with primary care doctor follow up 12/18/2018 11:00 AM Provider Ariane Kelly MD Department Internal Medicine [facility] for repeat vital signs and repeat complete blood count test because of leukocytosis (increased white blood cell counts) from previous steroids during this hospital stay as part of the asthma treatment which also contributed to fast heart rate on previous hospital days Prescriptions: New doxycycline hyclate 100 mg Capsule 100 mg PO BID 7 Days Qty: 14 RF: 0 Continued epinephrine 0.3 mg/0.3 mL auto-injector 0.3 mg subcut UD PRN (Reason: Allergic Reaction) RF: 0 albuterol sulfate 90 mcg/actuation HFA aerosol inhaler 2 puff inhalation Q4 PRN (Reason: Shortness Of Breath Or Wheezing) RF: 0 fluticasone propionate 50 mcg/actuation spray,suspension 2 spray intranasal DAILY RF: 0 loratadine [Allergy Relief (loratadine)] 10 mg tablet 10 mg PO QAM RF: 0 fluticasone propion-salmeterol 232-14 mcg/actuation aerosol powdr breath activated 1 puff inhalation BID RF: 0 Stand-Alone Forms: [facility] Discharge Orders: Discharge Order (Routine); Ordered 12/12/18 Ordered By: Lalito Guidry Admission Data Admit Date/Time: 12/10/18 20:55 Attending Provider: Lalito Guidry Admit Provider: Gerardo Meyer Primary Care Provider: PCP,NO Other Providers: Gerardo Meyer Service: Medical
--- NOTE | 2018-12-17 09:17 | Coding Query ---
CODING QUERY To promote full compliance with coding requirements relating to patient care, provider participation is requested in all cases of entry level financial analyst uncertainty. Please assist us with the question(s) below: Coding Question(s): Please clarify below, in your clinical opinion, regarding the documented Bronchitis. ( x ) Acute Bronchitis ( ) Chronic or Unspecified Bronchitis ( ) Other Bronchitis, Please Specify Physician's Response(s): Thank you Payal Carter Principal Diagnosis: "that condition established after study, to be chiefly responsible for occasioning the admission of the patient to the hospital for care." Co-Existing Principal Diagnosis: "when two or more diagnoses equally meet the criteria for principal diagnosis as determined by the circumstances of admission, diagnostic work up, and/or therapy provided, and the Alphabetic Index, Tabular List, or another coding guideline does not provide sequencing direction, any one of the diagnoses may be sequenced first." "When the physician has documented what appears to be a current diagnosis in the body of the record, but has not included the diagnosis in the final diagnostic statement, the physician should be asked whether the diagnosis should be added." (Source Coding Clinic 2 QTR90. p3-4) TANI
== END 2018-12-12 17:56 | disposition home or self-care (01) | DRG 202 ==
LOC: ED 16:21 → 2E 20:55 → 4W 12-11 16:14
DX: R07.89 Other chest pain; Z91.048 Other nonmedicinal substance allergy status; J20.9 Acute bronchitis, unspecified; F17.200 Nicotine dependence, unspecified, uncomplicated; J45.21 Mild intermittent asthma with (acute) exacerbation; Z91.030 Bee allergy status; Z79.51 Long term (current) use of inhaled steroids; Z79.899 Other long term (current) drug therapy; D72.829 Elevated white blood cell count, unspecified; E87.6 Hypokalemia; T38.0X5A Adverse effect of glucocorticoids and synthetic analogues, initial encounter; Z88.2 Allergy status to sulfonamides; Z83.6 Family history of other diseases of the respiratory system; Z88.1 Allergy status to other antibiotic agents; R00.0 Tachycardia, unspecified